=== PATIENT | female | born 1985 | race African-American/Black ===

== ENCOUNTER 2021-11-19 17:18 | Emergency (ER) | payer BC, OTHER | END 2021-11-19 17:45 | disposition home or self-care (01) | LOC: MW.ED 17:18 | DX: S29.012A Strain of muscle and tendon of back wall of thorax, initial encounter (principal); M62.838 Other muscle spasm; Z88.8 Allergy status to other drugs, medicaments and biological substances; X50.1XXA Overexertion from prolonged static or awkward postures, initial encounter | CPT/HCPCS: 99283 ==

== ENCOUNTER 2022-01-20 17:53 | Emergency (ER) | payer OTHER ==
[2022-01-20] MEDS ORDERED: traMADol 50 MG Tab PO ONE (19:04)
== END 2022-01-20 20:10 | disposition home or self-care (01) ==
LOC: MW.ED 17:53
DX: S92.312A Displaced fracture of first metatarsal bone, left foot, initial encounter for closed fracture (principal); Z88.8 Allergy status to other drugs, medicaments and biological substances; W20.8XXA Other cause of strike by thrown, projected or falling object, initial encounter
CPT/HCPCS: 73630; 99283; A9270

== ENCOUNTER 2022-02-20 06:04 | Day surgery (SDC) | payer OTHER ==
[~2022-02-20 06:04] MED LIST: Lactated Ringers 1,000 ML IV SCH
[2022-02-20] MEDS ORDERED: Albuterol 0.083% 2.5 MG/3 ML Neb Soln NEB PRN (06:07)
[2022-02-20] MEDS ORDERED: fentaNYL 100 MCG/2 ML SDV IVPUSH PRN (06:07)
[2022-02-20] MEDS ORDERED: HYDROmorphone 1 MG/ML Syringe IVPUSH PRN (06:07)
[2022-02-20] MEDS ORDERED: Naloxone 0.4 MG/ML SDV IVPUSH PRN (06:07)
[2022-02-20] MEDS ORDERED: Ondansetron 4 MG/2 ML SDV IVPUSH PRN (06:07)
[2022-02-20] MEDS ORDERED: Morphine 4 MG/ML VIAL IVPUSH PRN (06:07)
[2022-02-20] MEDS ORDERED: Metoclopramide 10 MG/2 ML SDV IVPUSH PRN (06:07)
[2022-02-20] MEDS ORDERED: Scopolamine 1.5 MG Transdermal Patch TOP ONE ×2 (06:08→07:00)
[2022-02-20] MEDS ORDERED: Lidocaine 1% 20 ML MDV ONE (07:10)
[2022-02-20] MEDS ORDERED: Bupivacaine 0.5% 30 ML SDV ONE (07:10)
[2022-02-20] MEDS ORDERED: ceFAZolin 1 GM Vial ONE (07:10)
[2022-02-20] MEDS ORDERED: Propofol 200 MG/20 ML SDV ONE ×2 (07:22→09:37)
[2022-02-20] MEDS ORDERED: Dexamethasone 4 MG/ML 5 ML MDV ONE (07:22)
[2022-02-20] MEDS ORDERED: fentaNYL 100 MCG/2 ML SDV ONE ×2 (07:22→10:27)
[2022-02-20] MEDS ORDERED: Midazolam 1 MG/ML 2 ML SDV ONE (07:22)
[2022-02-20] MEDS ORDERED: Dexmedetomidine 200 MCG/2 ML SDV ONE (07:22)
[2022-02-20] MEDS ORDERED: Water For Injection, Sterile 20 ML ONE (07:26)
[2022-02-20] MEDS ORDERED: ceFAZolin 2 GM in Premix Bag 1 BAG IV ONE (08:00)
[2022-02-20] MEDS ORDERED: Ketorolac 30 MG/ML SDV ONE (10:16)
[2022-02-20] MEDS ORDERED: Ondansetron 4 MG/2 ML SDV ONE (10:16)
== END 2022-02-20 13:30 | disposition home or self-care (01) ==
LOC: MW.SDS 06:04
PROVIDERS: ATTEND Podiatrist Foot & Ankle Surgery
DX: S92.312A Displaced fracture of first metatarsal bone, left foot, initial encounter for closed fracture (principal); Z88.6 Allergy status to analgesic agent; Z79.899 Other long term (current) drug therapy; W23.0XXA Caught, crushed, jammed, or pinched between moving objects, initial encounter
CPT/HCPCS: 28485; 81025; A9270; J0690; J1100; J1885; J2250; J2405; J2704; J3010; J3490; J7120

== ENCOUNTER 2024-02-02 15:22 | Emergency (ER) | payer BC, OTHER ==
[2024-02-02] MEDS: Ibuprofen 600 MG Tab PO ONE (17:25)
== END 2024-02-02 19:03 | disposition home or self-care (01) ==
LOC: MW.ED 15:22
DX: M25.511 Pain in right shoulder (principal); V43.32XA Unspecified car occupant injured in collision with other type car in nontraffic accident, initial encounter; Z86.16 Personal history of COVID-19; Z88.6 Allergy status to analgesic agent
CPT/HCPCS: 70450; 71045; 72125; 99285; A9270; 99283